=== PATIENT | male | born 1990 | race African-American/Black ===

== ENCOUNTER 2019-01-22 10:26 | Emergency (ER) | payer SELFPAY ==
[2019-01-22] MEDS ORDERED: ONDANSETRON HCL INJ/PF 4 MG/2 ML SDV IV ONE (11:22)
[2019-01-22] MEDS ORDERED: NORMAL SALINE 1000 ML 1,000 ML IV ONE (11:22)
[2019-01-22] MEDS ORDERED: KETOROLAC TROMETHAMINE INJ/PF 30 MG/1 ML SDV IV ONE (11:22)
--- NOTE | 2019-01-22 11:24 | ER Document Report ---
ED Medical Screen (RME) - General Chief Complaint: Headache Stated Complaint: HEAD/FACIAL PAIN Time Seen by Provider: 01/22/19 11:18 Mode of Arrival: Ambulatory Information source: Patient TRAVEL OUTSIDE OF THE [place] IN LAST 30 DAYS: No - HPI Patient complains to provider of: Headache, tooth pain, abdominal pain Notes: 01/22/19 11:23 Patient is a 28-year-old male presenting to the emergency room complaining of headache with pain but is behind his right eye, photophobia, nausea, he reports his wisdom tooth on that side is impacted and decayed, he also reports ongoing crampy abdominal pain 01/22/19 11:23 RAPID MEDICAL EVALUATION DISCLOSURE I have seen this patient as part of a Rapid Medical Evaluation and, if applicable, placed any initially appropriate orders. The patient will be seen and fully evaluated, including a full history and physical exam, by a provider (in Main ED or Fast Track) when a room becomes available. - Related Data Allergies/Adverse Reactions: No Known Allergies Allergy (Unverified 01/22/19 10:29) Physical Exam - Vital signs Vitals: Temp Pulse Resp BP Pulse Ox 98.6 F 76 16 123/63 100 01/22/19 10:36 01/22/19 10:36 01/22/19 10:36 01/22/19 10:36 01/22/19 10:36 Course - Vital Signs Vital signs: Temp Pulse Resp BP Pulse Ox 98.6 F 76 16 123/63 100 01/22/19 10:36 01/22/19 10:36 01/22/19 10:36 01/22/19 10:36 01/22/19 10:36
[2019-01-22 12:27] LABS: ABSOLUTE EOSINOPHILS # (AUTO) 0.1 10^3/uL (0.0-0.6); ABSOLUTE LYMPHOCYTES (AUTO) 1.3 10^3/uL (0.5-4.7); ABSOLUTE MONOCYTES (AUTO) 0.5 10^3/uL (0.1-1.4); ABSOLUTE NEUT (AUTO) 2.9 10^3/uL (1.7-8.2); BASOPHILS % (AUTO) 0.3 % (0-2); EOSINOPHILS % (AUTO) 1.3 % (0-6); HEMATOCRIT 43.2 % (37.9-51.0); HEMOGLOBIN 14.7 g/dL (13.5-17.0); LYMPHOCYTES % (AUTO) 26.7 % (13-45); MEAN CORPUSCULAR HEMOGLOBIN 28.5 pg (27.0-33.4); MEAN CORPUSCULAR VOLUME 84 fl (80-97); MONOCYTES % (AUTO) 10.9 % (3-13); PLATELET COUNT 246 10^3/uL (150-450); RED BLOOD COUNT 5.14 10^6/uL (4.35-5.55); SEGMENTED NEUTROPHILS % (AUTO) 60.8 % (42-78); TOTAL CELLS COUNTED % (AUTO) 100 %; WHITE BLOOD COUNT 4.7 10^3/uL (4.0-10.5)
[2019-01-22 12:30] LABS: APPEARANCE,URINE CLEAR; BILIRUBIN,URINE NEGATIVE (NEGATIVE); COLOR,URINE YELLOW; GLUCOSE, URINE NEGATIVE (NEGATIVE); KETONES,URINE NEGATIVE (NEGATIVE); LEUKOCYTE ESTERASE,URINE NEGATIVE (NEGATIVE); NITRITE,URINE NEGATIVE (NEGATIVE); PROTEIN,URINE NEGATIVE (NEGATIVE); URINE SPECIFIC GRAVITY 1.019; UROBILINOGEN,URINE NEGATIVE mg/dL (<2.0)
[2019-01-22 12:45] LABS: ALANINE AMINOTRANSFERASE 28 U/L (21-72); ALBUMIN 4.6 g/dL (3.5-5.0); ALKALINE PHOSPHATASE 72 U/L (38-126); ANION GAP 10 (5-19); ASPARTATE AMINO TRANSFERASE 23 U/L (17-59); BILIRUBIN,DIRECT 0.2 mg/dL (0.0-0.4); BILIRUBIN,TOTAL 0.5 mg/dL (0.2-1.3); BLOOD UREA NITROGEN 15 mg/dL (7-20); CARBON DIOXIDE 28 mmol/L (22-30); CHLORIDE 104 mmol/L (98-107); GLUCOSE 95 mg/dL (75-110); LIPASE 55.6 U/L (23-300); POTASSIUM 4.9 mmol/L (3.6-5.0); SODIUM 141.7 mmol/L (137-145); TOTAL PROTEIN 7.8 g/dL (6.3-8.2)
[2019-01-22 12:53] VITALS: BP 118/73
--- NOTE | 2019-01-22 12:54 | ER Document Report ---
ED Headache - General Chief Complaint: Headache Stated Complaint: HEAD/FACIAL PAIN Time Seen by Provider: 01/22/19 11:18 Mode of Arrival: Ambulatory Information source: Patient TRAVEL OUTSIDE OF THE [place] IN LAST 30 DAYS: No - HPI Patient complains to provider of: Headache, Facial pain Onset: Other Onset was: Gradual Timing: Still present Quality of pain: Achy Severity: Moderate Pain Level: 3 Exacerbated by: Light Similar symptoms previously: Yes Recently seen / treated by doctor: No Notes: 01/22/19 11:23 Patient is a 28-year-old male presenting to the emergency room complaining of headache with pain but is behind his right eye, photophobia, nausea, he reports his wisdom tooth on that side is impacted and decayed, he also reports ongoing crampy abdominal pain the abdominal pain is been going on for quite some time it is mild and crampy in nature, he denies any vomiting or diarrhea - Related Data Allergies/Adverse Reactions: No Known Allergies Allergy (Unverified 01/22/19 10:29) Past Medical History - General Information source: Patient - Social History Smoking Status: Current Every Day Smoker Frequency of alcohol use: Occasional Drug Abuse: None Family History: Reviewed & Not Pertinent Patient has suicidal ideation: No Patient has homicidal ideation: No Renal/ Medical History: Denies: Hx Peritoneal Dialysis Past Surgical History: Reports: Hx Oral Surgery - jaw surgery 2014 Review of Systems - Review of Systems Constitutional: No symptoms reported EENT: Mouth pain, Dental problem Cardiovascular: No symptoms reported Respiratory: No symptoms reported Gastrointestinal: See HPI, Nausea Genitourinary: No symptoms reported Male Genitourinary: No symptoms reported Musculoskeletal: No symptoms reported Skin: No symptoms reported Hematologic/Lymphatic: No symptoms reported Neurological/Psychological: Headaches -: Yes All other systems reviewed and negative Physical Exam - Vital signs Vitals: Temp Pulse Resp BP Pulse Ox 98.6 F 76 16 123/63 100 01/22/19 10:36 01/22/19 10:36 01/22/19 10:36 01/22/19 10:36 01/22/19 10:36 Interpretation: Normal - General General appearance: Appears well, Alert - HEENT Head: Normocephalic, Atraumatic Eyes: Normal Pupils: PERRL Teeth diagram: 1 - Mild erythema - Respiratory Respiratory status: No respiratory distress Chest status: Nontender Breath sounds: Normal Chest palpation: Normal - Cardiovascular Rhythm: Regular Heart sounds: Normal auscultation Murmur: No - Abdominal Inspection: Normal Distension: No distension Bowel sounds: Normal Tenderness: Tender - Mild diffuse Organomegaly: No organomegaly - Back Back: Normal, Nontender - Extremities General upper extremity: Normal inspection, Nontender, Normal color, Normal ROM, Normal temperature General lower extremity: Normal inspection, Nontender, Normal color, Normal ROM, Normal temperature, Normal weight bearing. No: Gretchen's sign - Neurological Neuro grossly intact: Yes Cognition: Normal Orientation: AAOx4 Anum Coma Scale Eye Opening: Spontaneous Beauty Coma Scale Verbal: Oriented Anum Coma Scale Motor: Obeys Commands Anum Coma Scale Total: 15 Speech: Normal Motor strength normal: LUE, RUE, LLE, RLE Sensory: Normal - Psychological Associated symptoms: Normal affect, Normal mood - Skin Skin Temperature: Warm Skin Moisture: Dry Skin Color: Normal Course - Re-evaluation Re-evalutation: 01/22/19 12:57 Patient provided with IV fluids and medications, labs were discussed at bedside which are unremarkable, he does report some relief of symptoms, symptoms likely related to dental issue, patient given a list of low-cost dental clinics for follow-up and advised to return if symptoms worsen, patient acknowledges understanding and agreement with this plan - Vital Signs Vital signs: Temp Pulse Resp BP Pulse Ox 98.5 F 68 18 118/73 100 01/22/19 12:53 01/22/19 12:53 01/22/19 12:53 01/22/19 12:53 01/22/19 12:53 - Laboratory Result Diagrams: 01/22/19 12:07 01/22/19 12:07 Laboratory results interpreted by me: 01/22/19 12:07 Urine Blood SMALL H Discharge - Discharge Clinical Impression: Headache, Tooth pain Condition: Stable Disposition: HOME, SELF-CARE Instructions: Antinausea Medication ([facility]), [facility], Dentist, Headache ([facility]), Toothache ([facility]) Additional Instructions: Follow up with your primary care provider and dentist in one to 2 days. Return to the emergency room immediately if symptoms worsen or any additional concerns. Prescriptions: Ibuprofen [Motrin 600 Mg Tablet] 600 mg PO TID #30 tablet Ondansetron HCl [Zofran 4 mg Tablet] 1 - 2 tab PO Q4H PRN #10 tablet PRN Reason:
== END 2019-01-22 12:57 | disposition home or self-care (01) ==
LOC: ER 10:26
DX: R51 Headache (principal); H53.149 Visual discomfort, unspecified; K08.89 Other specified disorders of teeth and supporting structures; R11.0 Nausea; R10.817 Generalized abdominal tenderness; F17.200 Nicotine dependence, unspecified, uncomplicated; R10.819 Abdominal tenderness, unspecified site
CPT/HCPCS: 99284; 96374; 96375; 36415; 83690; 85025; 80053; 81001; J1885; J2405; J7030